=== PATIENT | male | born 1960 | race Caucasian/White ===

== ENCOUNTER 2020-06-28 08:53 | Inpatient (IN) | payer MEDICARE ==
[~2020-06-28 08:53] MED LIST: BACTRIM DS TAB1 EACH PO; DUONEB 2.5-0.5M1 AMP INH; IBUPROFEN800 MG PO; MEDROL 4MG DOSEP4 MG PO; PREDNISONE 20MG20 MG PO
[2020-06-28 09:40] LABS: EOSINOPHIL 3.2 % (0-5); HCT 46.6 % (42.0-52.0); HGB 15.2 g/dl (13.2-18.0); LYMPHOCYTE 16.2 % (15-48); MCH 28.9 pg (25.0-31.0); MCHC 32.6 g/dL (32.0-36.0); MCV 88.6 fL (78.0-100.0); MONOCYTE 6.5 % (0-12); MPV 10.6 fL (6.0-9.5); NRBC 0; PLT 206 K/uL (150-400); RBC 5.26 M/uL (4.70-6.00); RDW 13.9 % (11.5-14.0); WBC 7.3 K/uL (4.0-10.5)
[2020-06-28 09:45] LABS: INR 1.05 (0.9-1.2); PTT 29.7 SECONDS (22.2-34.7)
[2020-06-28 09:46] LABS: D-DIMER 0.53 ug/mLFEU (0.00-0.41)
[2020-06-28 09:51] LABS: ALBUMIN 3.5 g/dL (3.4-5.0); BUN/CREAT RATIO (CALC) 13.7 RATIO; CREATININE 1.17 mg/dL (0.67-1.17); GLOBULIN (CALCULATION) 3.7 g/dL; POTASSIUM 4.5 mmol/L (3.5-5.1); TOTAL PROTEIN 7.2 g/dL (6.4-8.2)
[2020-06-28] MEDS ORDERED: LASIX40 MG PO (15:19)
[2020-06-28] MEDS ORDERED: ATORVASTATIN CA80 MG PO (15:19)
[2020-06-28] MEDS ORDERED: PLAVIX75 MG PO (15:19)
[2020-06-28] MEDS ORDERED: ASPIRIN EC81 MG PO (15:20)
[2020-06-28] MEDS ORDERED: COREG12.5 MG PO (15:20)
[2020-06-28] MEDS ORDERED: FOLIC ACID1 MG PO (15:21)
[2020-06-28] MEDS ORDERED: HYDRALAZINE 10M10 MG PO (15:22)
[2020-06-28] MEDS ORDERED: VITAMIN B-121000 MC1 PO (15:22)
[2020-06-29 06:06] LABS: BASOPHIL 0.1 % (0-2); EOSINOPHIL 0 % (0-5); HCT 45.5 % (42.0-52.0); LYMPHOCYTE 6.4 % (15-48); MCH 28.7 pg (25.0-31.0); MONOCYTE 0.5 % (0-12); MPV 10.7 fL (6.0-9.5); NEUTROPHIL 91.8 % (41-80); NRBC 0; PLT 211 K/uL (150-400); RBC 5.23 M/uL (4.70-6.00); RDW 13.7 % (11.5-14.0); WBC 11.3 K/uL (4.0-10.5)
[2020-06-29 06:34] LABS: BUN/CREAT RATIO (CALC) 24.4 RATIO; CREATININE 1.19 mg/dL (0.67-1.17); MAGNESIUM 1.9 mg/dL (1.8-2.4); POTASSIUM 4.5 mmol/L (3.5-5.1)
[2020-06-30 05:47] LABS: HCT 44.3 % (42.0-52.0); HGB 14.6 g/dl (13.2-18.0); MCH 29.2 pg (25.0-31.0); MCV 88.6 fL (78.0-100.0); MPV 10.7 fL (6.0-9.5); RDW 14.2 % (11.5-14.0); WBC 16.6 K/uL (4.0-10.5)
[2020-06-30 06:08] LABS: BUN/CREAT RATIO (CALC) 31.1 RATIO; CREATININE 1.03 mg/dL (0.67-1.17); POTASSIUM 4.6 mmol/L (3.5-5.1)
[2020-07-01 05:28] LABS: HCT 43.4 % (42.0-52.0); HGB 14.4 g/dl (13.2-18.0); MCH 29.1 pg (25.0-31.0); MCHC 33.2 g/dL (32.0-36.0); MCV 87.9 fL (78.0-100.0); MPV 10.6 fL (6.0-9.5); RBC 4.94 M/uL (4.70-6.00); RDW 14.1 % (11.5-14.0); WBC 14.7 K/uL (4.0-10.5)
[2020-07-01 05:52] LABS: CREATININE 1.03 mg/dL (0.67-1.17); POTASSIUM 5.2 mmol/L (3.5-5.1)
[2020-07-01] MEDS ORDERED: MUCINEX 600MG600 MG PO (09:30)
[2020-07-01] MEDS ORDERED: DUONEB 2.5-0.5M1 AMP NEB (09:30)
[2020-07-01] MEDS ORDERED: DIGITEK125 MCG PO (09:30)
[2020-07-01] MEDS ORDERED: PRINIVIL10 MG PO (09:30)
[2020-07-01] MEDS ORDERED: MEDROL 4MG DOSEP4 MG PO (09:38)
--- NOTE | 2020-07-01 11:46 | NUR ---
07/01/20 Patient did not qualify for 02. SECURITIES ADVISER reports 02 at 93% during walk test.
== END 2020-07-01 10:32 | disposition home or self-care (01) | DRG 190 ==
LOC: FER 08:53 → FTCU 12:45
PROVIDERS: Emergency Medicine; Hospitalist; ADMIT Internal Medicine
DX: J44.1 Chronic obstructive pulmonary disease with (acute) exacerbation (principal); I21.A1 Myocardial infarction type 2; I50.23 Acute on chronic systolic (congestive) heart failure; I42.0 Dilated cardiomyopathy; I11.0 Hypertensive heart disease with heart failure; Z20.822 Contact with and (suspected) exposure to COVID-19; I25.10 Atherosclerotic heart disease of native coronary artery without angina pectoris; E78.5 Hyperlipidemia, unspecified; Z95.810 Presence of automatic (implantable) cardiac defibrillator; Z98.890 Other specified postprocedural states; I25.2 Old myocardial infarction; Z91.14 Patient's other noncompliance with medication regimen; Z79.82 Long term (current) use of aspirin; Z79.899 Other long term (current) drug therapy
CPT/HCPCS: 36415; 36600; 71045; 71275; 80048; 80053; 82803; 83605; 83735; 83880; 84484; 85025; 85379; 85610; 85730; 93005; 94010; 94640; J0456; J0696; J1650; J2920; J2930; J7050; Q9967; U0002

== ENCOUNTER 2021-07-06 13:20 | Emergency (ER) | payer MEDICARE ==
[~2021-07-06 13:20] MED LIST changes: +ASPIRIN EC81 MG PO; +ATORVASTATIN CA80 MG PO; +COREG12.5 MG PO; +DIGITEK125 MCG PO; +DUONEB 2.5-0.5M1 AMP NEB; +FOLIC ACID1 MG PO; +HYDRALAZINE 10M10 MG PO; +LASIX40 MG PO; +MUCINEX 600MG600 MG PO; +PLAVIX75 MG PO; +PRINIVIL10 MG PO; +VITAMIN B-121000 MC1 PO
== END 2021-07-06 15:37 | disposition home or self-care (01) ==
LOC: FER 13:20
DX: S46.212A Strain of muscle, fascia and tendon of other parts of biceps, left arm, initial encounter (principal); J44.9 Chronic obstructive pulmonary disease, unspecified; I10 Essential (primary) hypertension; Z79.82 Long term (current) use of aspirin; Z79.02 Long term (current) use of antithrombotics/antiplatelets; X58.XXXA Exposure to other specified factors, initial encounter
CPT/HCPCS: 73060; 73090